=== PATIENT | female | born 1955 | race Caucasian/White ===

== ENCOUNTER → 2018-12-11 | Outpatient (CLI) | payer BC ==
[~2018-12-11] MED LIST: ACETAMINOPHEN 500 MG TAB PO; CEFAZOLIN 2 GM/50 ML (PMX) 50 ML IVPB; DEXAMETHASONE 4 MG/ML 1 ML INJ IV; DEXAMETHASONE 4 MG/ML 5 ML INJ; FENTAnyl 50 MCG/ML VIAL; GLYCOPYRROLATE 0.4 MG INJ; LACTATED RINGER'S 1,000 ML IV*; LIDOCAINE 2% (SDV) 5 ML INJ; MIDAZOLAM 1 MG/ML 2 ML INJ; NEOSTIGMINE 3 MG/3 ML SYRINGE; ONDANSETRON 4 MG INJ; PROPOFOL 20 ML; ROCURONIUM 50 MG INJ; TRANEXAMIC ACID 1,000 MG in NS 100 ML INTRA-OP X1 IVPB; TRANEXAMIC ACID 1,000 MG in NS 100 ML PRE-OP X1 IVPB
== END | disposition home or self-care (01) ==
LOC: REC 12-18 09:21 → LAB 15:20
DX: Z01.812 Encounter for preprocedural laboratory examination (principal); M17.12 Unilateral primary osteoarthritis, left knee
CPT/HCPCS: 86850; 86900; 86901; 87081

== ENCOUNTER 2019-01-22 10:33 | Inpatient (IN) | payer BC ==
[2019-01-22] MEDS: DEXAMETHASONE 4 MG/ML 1 ML INJ IV (11:18)
[2019-01-22] MEDS: LACTATED RINGER'S 1,000 ML IV ×2 (11:18→17:49)
[2019-01-22] MEDS: ACETAMINOPHEN 1000MG/100ML IV 100 ML IVPB (11:18)
[2019-01-22] MEDS ORDERED: LANSOPRAZOLE 30 MG CAP PO (12:00)
[2019-01-22] MEDS ORDERED: NEOSTIGMINE 10 MG INJ (12:00)
[2019-01-22] MEDS ORDERED: LIDOCAINE 2% (SDV) 5 ML INJ (12:00)
[2019-01-22] MEDS ORDERED: ONDANSETRON 4 MG INJ (12:17)
[2019-01-22] MEDS ORDERED: PROPOFOL 20 ML (12:17)
[2019-01-22] MEDS ORDERED: MIDAZOLAM 1 MG/ML 2 ML INJ (12:17)
[2019-01-22] MEDS ORDERED: FENTAnyl 50 MCG/ML VIAL (12:17)
[2019-01-22] MEDS ORDERED: CEFAZOLIN 1 GM INJ (12:17)
[2019-01-22] MEDS ORDERED: GLYCOPYRROLATE 0.4 MG INJ (12:17)
[2019-01-22] MEDS ORDERED: ROCURONIUM 50 MG INJ (12:17)
[2019-01-22] MEDS ORDERED: DEXAMETHASONE 4 MG/ML 5 ML INJ (12:18)
[2019-01-22] MEDS ORDERED: ROPIVACAINE 0.5 % 30 ML VIAL (12:19)
[2019-01-22] MEDS ORDERED: TRIMETHOBENZAMIDE 100 MG/ML VIAL IM ×2 (13:30)
[2019-01-22] MEDS ORDERED: HYDROmorphONE 1 MG/5 ML IV SYRINGE IV ×3 (13:30)
[2019-01-22] MEDS ORDERED: hydrALAzine 20 MG INJ IV (13:30)
[2019-01-22] MEDS ORDERED: MEPERIDINE 25 MG INJ IV (13:30)
[2019-01-22] MEDS ORDERED: IPRATROPIUM (NEB) 0.5 MG/2.5 ML AMP HHN (13:30)
[2019-01-22] MEDS ORDERED: HYDROmorphONE 0.5 MG/0.5 ML SYG IV ×2 (13:30)
[2019-01-22] MEDS ORDERED: LABETALOL HCL 20MG INJ IV (13:30)
[2019-01-22] MEDS ORDERED: NALBUPHINE HCL (10 MG/1 ML) INJ IV (13:30)
[2019-01-22] MEDS ORDERED: NALOXONE (0.4 MG/ML) INJ IV ×2 (13:30→16:00)
[2019-01-22] MEDS ORDERED: FENTAnyl 50 MCG/ML VIAL IV ×3 (13:30)
[2019-01-22] MEDS ORDERED: ALBUTEROL 0.083% (NEB) 2.5 MG/3 ML AMP HHN (13:30)
[2019-01-22] MEDS ORDERED: MIDAZOLAM 1 MG/ML 2 ML INJ IV (13:30)
[2019-01-22] MEDS ORDERED: ZOLPIDEM 5 MG TAB PO (13:30)
[2019-01-22] MEDS ORDERED: EPHEDrine SULFATE 50 MG/5 ML SYG IV (13:30)
[2019-01-22] MEDS ORDERED: DIPHENHYDRAMINE 50 MG INJ IV ×2 (13:30)
[2019-01-22] MEDS ORDERED: OXYCODONE/ACETAMINOPHEN (5/325) TAB PO ×2 (13:30)
[2019-01-22] MEDS ORDERED: ONDANSETRON 4 MG INJ IV ×2 (13:30)
[2019-01-22] MEDS ORDERED: KETOROLAC 15 MG INJ IV ×2 (13:30→16:00)
[2019-01-22] MEDS ORDERED: KETOROLAC 30 MG INJ IV (13:30)
[2019-01-22] MEDS: POLYMYXIN B 500000 UNIT INJ (13:43)
[2019-01-22] MEDS: BACITRACIN 50000 UNITS INJ (13:43)
[2019-01-22] MEDS: TRANEXAMIC ACID 1GM/100ML(PMX) 100 ML AT CLOSURE X1 IVPB (13:44)
[2019-01-22] MEDS: TRANEXAMIC ACID 1GM/100ML(PMX) 100 ML AT INCISION X1 IVPB (13:45)
[2019-01-22] MEDS ORDERED: morphine SULFATE/PF (10 MG/10 ML) INJ (13:57)
[2019-01-22] MEDS ORDERED: oxyCODONE 5 MG TAB PO (16:00)
[2019-01-22] MEDS: CEFAZOLIN 2 GM/50 ML (PMX) 50 ML IVPB (16:00)
[2019-01-22] MEDS ORDERED: MAGNESIUM HYDROXIDE 30ML CUP PO (16:00)
[2019-01-22] MEDS ORDERED: NACL 0.9% 3 ML SYG IV (16:00)
[2019-01-22] MEDS: CEFAZOLIN 2 GM/50 ML (PMX) 50 ML (FOR WT < 120 KG) IVPB (17:03)
[2019-01-22] MEDS: GABAPENTIN 100 MG CAP PO (20:52)
[2019-01-22] MEDS: ONDANSETRON 4 MG INJ IV (22:59)
[2019-01-23] MEDS: CEFAZOLIN 2 GM/50 ML (PMX) 50 ML IVPB ×2 (00:10→08:19)
[2019-01-23 05:23] LABS: ADD MAN DIFF? NO
[2019-01-23 05:25] LABS: WHITE BLOOD COUNT 9.6 10^3/ul (4.8-10.8)
[2019-01-23 05:25] LABS: ABNORMAL IP MESSAGE 1; BASOPHILS % 0.1 % (0.0-2.0); HEMATOCRIT 30.1 % (37.0-47.0); HEMOGLOBIN 9.9 g/dl (12.0-16.0); LYMPHOCYTES # 0.6 10^3/ul (0.8-2.9); MEAN CORPUSCULAR HGB CONC 32.9 g/dl (32.0-37.0); MEAN CORPUSCULAR VOLUME 94.4 fl (82.0-101.0); MEAN PLATELET VOLUME 10.2 fl (7.4-10.4); MONOCYTE # 0.5 10^3/ul (0.3-0.9); MONOCYTES % 5.2 % (0.0-11.0); NEUTROPHIL # 8.5 10^3/ul (1.6-7.5); NEUTROPHILS % 88.4 % (39.0-77.0); PLATELET COUNT 192 10^3/UL (140-415); RED BLOOD COUNT 3.19 10^6/ul (4.20-5.40); RED CELL DISTRIBUTION WIDTH 13.2 % (11.5-14.5)
[2019-01-23 05:35] LABS: POSITIVE DIFF @See below
[2019-01-23] MEDS: LACTATED RINGER'S 1,000 ML IV ×3 (05:35→20:00)
[2019-01-23 05:58] LABS: ANION GAP 5 (5-13); BLOOD UREA NITROGEN 13 mg/dl (7-20); CALCIUM 9.1 mg/dl (8.4-10.2); CARBON DIOXIDE 27 mmol/L (21-31); CHLORIDE 104 mmol/L (97-110); CREATININE 0.51 mg/dl (0.44-1.00); Estimated GFR > 60 mL/min (>60); GLUCOSE 135 mg/dl (70-220); POTASSIUM 4.5 mmol/L (3.5-5.1); SODIUM 136 mmol/L (135-144)
[2019-01-23] MEDS: ASPIRIN (EC) 81 MG TAB PO ×2 (08:18→20:51)
[2019-01-23] MEDS: DOCUSATE SODIUM 100 MG CAP PO ×2 (08:18→20:51)
[2019-01-23] MEDS: CELECOXIB 100 MG CAP PO ×2 (08:18→20:51)
[2019-01-23] MEDS: GABAPENTIN 100 MG CAP PO ×3 (08:18→20:50)
[2019-01-23] MEDS: SOD CHLORIDE 0.9% 1,000 ML IV (14:57)
[2019-01-23] MEDS: oxyCODONE 5 MG TAB PO (22:22)
[2019-01-24] MEDS: LACTATED RINGER'S 1,000 ML IV (04:00)
[2019-01-24 05:05] LABS: ADD MAN DIFF? NO
[2019-01-24 05:11] LABS: BASOPHILS % 0.4 % (0.0-2.0); EOSINOPHILS # 0.1 10^3/ul (0.0-0.5); EOSINOPHILS % 1.6 % (0.0-7.0); HEMATOCRIT 26.3 % (37.0-47.0); HEMOGLOBIN 8.8 g/dl (12.0-16.0); LYMPHOCYTES # 2.1 10^3/ul (0.8-2.9); LYMPHOCYTES % 40.8 % (15.0-51.0); MEAN CORPUSCULAR HEMOGLOBIN 30.9 pg (29.0-33.0); MEAN CORPUSCULAR HGB CONC 33.5 g/dl (32.0-37.0); MEAN CORPUSCULAR VOLUME 92.3 fl (82.0-101.0); MEAN PLATELET VOLUME 10.1 fl (7.4-10.4); MONOCYTE # 0.5 10^3/ul (0.3-0.9); MONOCYTES % 9.6 % (0.0-11.0); NEUTROPHIL # 2.4 10^3/ul (1.6-7.5); NEUTROPHILS % 47.2 % (39.0-77.0); PLATELET COUNT 158 10^3/UL (140-415); RED BLOOD COUNT 2.85 10^6/ul (4.20-5.40); RED CELL DISTRIBUTION WIDTH 13.6 % (11.5-14.5)
[2019-01-24 05:11] LABS: WHITE BLOOD COUNT 5.1 10^3/ul (4.8-10.8)
[2019-01-24 05:39] LABS: ANION GAP 5 (5-13); BLOOD UREA NITROGEN 13 mg/dl (7-20); CALCIUM 8.7 mg/dl (8.4-10.2); CARBON DIOXIDE 29 mmol/L (21-31); CHLORIDE 104 mmol/L (97-110); CREATININE 0.72 mg/dl (0.44-1.00); Estimated GFR > 60 mL/min (>60); GLUCOSE 81 mg/dl (70-220); POTASSIUM 4.4 mmol/L (3.5-5.1); SODIUM 138 mmol/L (135-144)
[2019-01-24] MEDS: PANTOPRAZOLE (EC) 40 MG TAB PO (06:08)
[2019-01-24] MEDS: oxyCODONE 5 MG TAB PO (06:11)
[2019-01-24] MEDS: ASPIRIN (EC) 81 MG TAB PO (08:14)
[2019-01-24] MEDS: DOCUSATE SODIUM 100 MG CAP PO (08:14)
[2019-01-24] MEDS: CELECOXIB 100 MG CAP PO (08:14)
[2019-01-24] MEDS: GABAPENTIN 100 MG CAP PO ×2 (08:14→12:29)
== END 2019-01-24 14:00 | disposition home health service (06) | DRG 470 ==
LOC: REC 10:33 → MS1 17:32
PROC: 0SRD0J9 Replacement of Left Knee Joint with Synthetic Substitute, Cemented, Open Approach (ICD-10-PCS; principal; 2019-01-22 12:30)
DX: M17.12 Unilateral primary osteoarthritis, left knee (principal); R55 Syncope and collapse
CPT/HCPCS: 73560; 80048; 85025; 86850; 86900; 86901; 87081; 88304; 88311; 93005; 97116; 97161; 97530